=== PATIENT | female | born 1960 | race Caucasian/White ===

== ENCOUNTER 2017-06-25 13:34 | Emergency (ER) | payer OTHER ==
[~2017-06-25] VITALS: Ht 154.9 cm; Wt 97.5 kg
--- NOTE | ~2017-06-25 | EKG ---
[place] [address] [place] [address] ELECTROCARDIOGRAM REPORT Name: FERNANDO SANTANA Room #: [facility] Llamas#: [id number] Admission: 06/25/17 Attend Phys: Discharge: 06/25/17 Date of : 62 Report #: [id number] THIS REPORT FOR: //name// 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
[2017-06-25] MEDS ORDERED: EFFEXOR XR75 MG PO (14:00)
[2017-06-25] MEDS ORDERED: SPIRIVA RESPIMAT4 GM IH (14:00)
[2017-06-25] MEDS ORDERED: ADVAIR 500-501 EACH INH (14:01)
[2017-06-25] MEDS ORDERED: SINGULAIR 10 MG10 M1 PO (14:01)
[2017-06-25] MEDS ORDERED: LEVOTHYROXINE137 MCG PO (14:02)
[2017-06-25 14:57] LABS: HEMATOCRIT 41.3 % (37.0-47.0); HEMOGLOBIN 14.1 gm/dL (12.0-15.0); MCH 29.6 pg (26.0-34.0); MCHC 34.2 g/dL (28.0-37.0); MCV 86.4 fL (80.0-100.0); PLATELET COUNT 154 thou/uL (150-400); RBC 4.79 mil/uL (4.20-5.00); RDW 13.4 % (10.5-14.5); WBC 4.4 thou/uL (4.0-11.0)
[2017-06-25 15:05] LABS: ANION GAP 7 mmol/L (7-16); BUN 14 mg/dL (7-18); CALCIUM 9.5 mg/dL (8.5-10.1); CHLORIDE 103 mmol/L (98-107); CO2 26 mmol/L (21-32); CREATININE 0.9 mg/dL (0.6-1.0); GLUCOSE 100 mg/dL (74-106); POTASSIUM 3.2 mmol/L (3.5-5.1); SODIUM 136 mmol/L (136-145)
[2017-06-25 15:14] LABS: ALBUMIN 3.6 g/dL (3.4-5.0); SGOT 21 U/L (15-37); SGPT 24 U/L (30-65); TOTAL BILIRUBIN 0.7 mg/dL (<0.1-1.0); TROPONIN-I < 0.04 ng/mL (<0.06)
[2017-06-25 15:28] LABS: ABSOLUTE NEUTROPHILS 2.9 thou/uL (1.4-8.2)
[2017-06-25] MEDS ORDERED: TESSALON PERLE100 MG PO (15:44)
[2017-06-25] MEDS ORDERED: ZPAK PO (15:44)
== END 2017-06-25 16:04 | disposition home or self-care (01) ==
LOC: ER 13:34
PROVIDERS: Physician Assistant
DX: J09.X1 Influenza due to identified novel influenza A virus with pneumonia (principal); J45.909 Unspecified asthma, uncomplicated; F32.9 Major depressive disorder, single episode, unspecified; E03.9 Hypothyroidism, unspecified; Z88.0 Allergy status to penicillin; Z90.49 Acquired absence of other specified parts of digestive tract

== ENCOUNTER → 2019-06-17 | Outpatient (CLI) | payer OTHER ==
[~2019-06-17] MED LIST: ADVAIR 500-501 EACH INH; EFFEXOR XR75 MG PO; LEVOTHYROXINE137 MCG PO; SINGULAIR 10 MG10 M1 PO; SPIRIVA RESPIMAT4 GM IH; TESSALON PERLE100 MG PO; ZPAK PO
== END ==
LOC: RAD 08:00
DX: J45.40 Moderate persistent asthma, uncomplicated (principal)